=== PATIENT | male | born 1940 | race Caucasian/White ===

== ENCOUNTER 2017-01-04 17:49 | Emergency (ER) | payer MEDICARE, OTHER ==
[~2017-01-04] VITALS: Ht 177.8 cm; Wt 78.5 kg
[2017-01-04 17:55] VITALS: Ht 177.8 cm; Wt 78.5 kg
[2017-01-04] MEDS ORDERED: SOD CHLORIDE 0.9% 1,000 ML IV STA (18:27)
--- NOTE | 2017-01-04 19:45 | ERD ---
ER Documentation Chief Complaint Date/Time DATE: 01/04/17 TIME: 19:45 Chief Complaint HEAT EXPOSURE, FOUND PASSED OUT ON STRE[address], HOMELESS HPI 76 year old male presenting by EMS complaining of feeling hot. Per report, the patient was laying on the street when found. THe patient states that he has walked all day today in the heat without drinking. He was sweting and not feeling well so he called the ambulance. When I saw the patient, he had already been to restroom to "clean himself" per nurses. Patient states he never "passed out" and feels much better now. He has no physical complaints. He is asking for food and water. He denies headache, vision disturbance, muscle aches, chest pain , abdominal pain, nausea or vomiting. He endorses normal urination. ROS All systems reviewed and are negative except as per history of present illness. PMhx/Soc Hx Psychiatric Problems: Yes Hx Alcohol Use: No Hx Substance Use: No Hx Tobacco Use: Yes Smoking Status: Current every day smoker FmHx Family History: No diabetes Physical Exam Vitals Vital Signs Date Time Temp Pulse Resp B/P Pulse Ox O2 Delivery O2 Flow Rate FiO2 01/04/17 20:03 97.8 100 20 116/94 95 Room Air 01/04/17 17:55 100.6 113 20 139/74 94 Physical Exam Const: sitting in chair, in paper scrubs, wet hair, pleasant and in no distress. Counting his money. Head: Atraumatic Eyes: Normal Conjunctiva ENT: Normal External Ears, Nose and Mouth. Neck: Full range of motion. No meningismus. Resp: Clear to auscultation bilaterally Cardio: Regular rate and rhythm, no murmurs Abd: Soft, non tender, non distended. Normal bowel sounds Skin: dry, warm Back: No midline or flank tenderness Ext: No cyanosis, or edema Neur: Awake and alert and oriented x 3, building mechanic intact, strength and sensations grossly intact, normal, stable gait Psych: Normal Mood and Affect Results 24 hrs Current Medications Medications (Trade) Dose Ordered Sig/Brice Route PRN Reason Start Time Stop Time Status Last Admin Dose Admin Sodium Chloride (NS) 1,000 ml @ 1,000 mls/hr Q1H STAT IV 01/04/17 18:27 01/04/17 19:15 DC Procedures/MDM When patient arrived, he was noted to have a low grade fever. Upon reevaluation , his temperature was within normal limits. PAtient was most likely suffering from heat exhaustion, but is now improved. He was provided food, water, and new clothing in the ED. No labs or imaging were done as the patient is well appearing and hemodynamically stable without any current physical complaints. Upon reevaluation, patient feels well and would like to leave. Return precaution and heat precautions discussed. Departure Diagnosis: Primary Impression: Heat exposure Encounter type: initial encounter Qualified Code: T67.9XXA - Heat exposure, initial encounter Condition: Stable NICKY ATKINS MD Jan 04, 2017 19:45
[2017-01-04 20:03] VITALS: BP 116/94; PULSE 100; RESP 20; TEMP 97.8
== END 2017-01-04 20:07 | disposition home or self-care (01) ==
LOC: E/R 17:49
DX: T67.9XXA Effect of heat and light, unspecified, initial encounter (principal); F17.210 Nicotine dependence, cigarettes, uncomplicated; X30.XXXA Exposure to excessive natural heat, initial encounter
CPT/HCPCS: 99283; J7030